=== PATIENT | male | born 1935 | race Caucasian/White ===

== ENCOUNTER 2017-06-07 14:46 | Inpatient (IN) ==
[2017-06-07] MEDS: *HR* Warfarin 3 MG TABLET PO SCH (21:44)
[2017-06-08] MEDS: Cholecalciferol (D-3) 1,000 UNIT TABLET PO SCH (09:01)
[2017-06-08] MEDS: Folic Acid 1 MG TABLET PO SCH (09:01)
[2017-06-08] MEDS: Metoprolol XL (24 HR) Succ 50 MG TAB.ER.24H PO SCH (09:01)
[2017-06-08] MEDS: *HR* Amiodarone 200 MG TABLET PO SCH (09:01)
[2017-06-08] MEDS: Furosemide 40 MG TABLET PO SCH (09:01)
[2017-06-08] MEDS: TESTOSTERONE APPL TP SCH (13:40)
--- NOTE | 2017-06-08 15:43 | Internal Med History&Physical ---
Date of Encounter: 06/08/17 Time of Encounter: 15:15 Assessment and Plan (1) CHF (congestive heart failure) Current visit: No Status: Chronic We will recheck BNP peptide in a.m. Qualifiers: Congestive heart failure type: combined Congestive heart failure chronicity : chronic Qualified Code(s): I50.42 - Chronic combined systolic (congestive) and diastolic (congestive) heart failure (2) Anemia Current visit: No Status: Chronic Suspect due at least in part to chronic kidney disease. We will order anemia testing in a.m. Qualifiers: Anemia type: unspecified type Qualified Code(s): D64.9 - Anemia, unspecified (3) Chronic kidney disease Current visit: No Status: Chronic Monitor renal indices periodically. Qualifiers: Chronic kidney disease stage: stage 4 (severe) Qualified Code(s): N18.4 - Chronic kidney disease, stage 4 (severe) Internal Medicine - H&P: HPI Chief complaint: Heart failure Admitted From: Hospital to Hospital Transfer Plans for Post Hospital Care: Home History of present illness: Mr. Thompson is a 81 year old male who was hospitalized at [facility] June 01 after presenting with dyspnea felt to be due to exaceration of heart failure. Medications were adjusted and he improved. It was felt he would benefit from swing bed stay for rehabilitation therapy prior to returning home. Cardiovascular history is significant for hypertension. He has paroxysmal atrial fibrillation and is on amiodarone. He had ICD pacemaker placed several years ago for ventricular tachycardia. He reports a cardiac ablation procedure was done. He had an echocardiogram 04/29/2017 which showed LVEF of 40-45%. The interventricular septum and posterior wall thickness measurements were elevated at 1.43 and 1.42 cm respectively. The E/A ratio was 0.6. There was LAE at 4.60 cm. There was reported NOBLE without measurements recorded. There was mild aortic regurgitation and [id number] mitral regurgitation. Denies history of DVT or pulmonary embolus. He is uncertain if he has had a heart catheter. Past Med Surg Social Fam HX - Past Medical History Medical history: atrial fibrillation, cancer, CHF, coronary artery disease, hyperlipidemia, hypertension, renal disease, other Psychiatric history: no psych history - Past Surgical History Surgical History: appendectomy, cataract, colectomy, prostatectomy, other, AICD , pacemaker - Social History Smoking Status: Former smoker Smokeless Tobacco Status: No Alcohol use: occasionally Drug use: none - Family History Mother Adopted: No Family Member Ethnicity: Non- Living Status: Hx Family Cardiac Disorders: Yes Hx Family GI Disorders: Yes (CRC resectable) Brother Hx Family Cancer: Yes (esophageal cancer, other brother had liver cancer) Father Adopted: No Family Member Ethnicity: Non- Living Status: Hx Family Cardiac Disorders: Yes Internal Medicine - H&P: Meds Amiodarone [Cordarone] 200 mg PO QAM 01/16/15 [History] Metoprolol XL (24 HR) Succ [Toprol Xl] 50 mg PO QAM 01/16/15 [History] Mexiletine [Mexitil] 200 mg PO Q8H 01/16/15 [History] Pravastatin Sodium 10 mg PO QPM 01/16/15 [History] Cholecalciferol (D-3) [Vitamin D] 2,000 unit PO DAILY 06/14/16 [History] Denosumab [Prolia (For Outpatient Infusion)] 60 mg SQ [id number] 04/27/17 [History ] Testosterone [Androgel] 2 appl TD DAILY 04/27/17 [History] Warfarin [Coumadin] 1.5 mg PO TUSA 04/27/17 [History] Warfarin [Coumadin] 3 mg PO SUMOWETHFR 04/27/17 [History] Folic Acid 1 mg PO DAILY #30 tablet 05/23/17 [Rx] Furosemide [Lasix] 40 mg PO DAILY 05/31/17 [History] 3 Allergy/AdvReac Type Severity Reaction Status Date / Time No Known Allergies Allergy Verified 05/19/17 13:18 All Systems PM: A 10-system review of systems was performed and is negative for pertinent findings except as documented above in the HPI. Review of systems: General: He states his weight has varied significantly in the past year based on fluid retention Cardiovascular: As per history of present illness Respiratory: He smoked a total of approximately 40 years but quit at least 25 years ago. He denies chronic lung disease GI: He denies disorders of his liver gallbladder or exocrine pancreas : He has chronic kidney disease stage III and BPH. He denies of the kidney bladder prostate disorders Neurologic: He denies large distribution strokes or seizures. Injuries: He has hyperlipidemia. He has no known diabetes or thyroid disease Hematology/oncology: He has anemia. He has had basal cell skin cancer but denies internal malignancies Psychiatric: He denies anxiety depression or other mental health issues Muscle skeletal: He denies arthritis or gout or other bone joint or muscle disorders. - Constitutional Vitals: Temp Pulse Resp BP Pulse Ox 98.2 F 53 18 141/77 95 06/08/17 06:10 06/08/17 06:10 06/08/17 06:10 06/08/17 06:10 06/08/17 06:10 Exam: Gen.: He is a well-developed well-nourished male resting comfortably in chair who denies pain or dyspnea HEENT: Head is atraumatic and normocephalic. Eyes: EOMI. There is no scleral icterus. Mouth: Mucosa is moist. Neck: Supple and nontender. There is no thyromegaly or adenopathy noted. Heart: Regular without murmurs gallops or ectopics Lungs: No wheezes or crackles are heard. Abdomen: Soft and nontender. No masses or guarding are noted. Extremities: There is no cyanosis or clubbing noted. He has 1+ edema bilaterally of the dorsum of the feet and lower anterior shins. Dorsalis pedis and posterior tibial pulses are not palpable. He has dependent rubor. Neurologic: Mental status: He is talkative and a good historian. Cranial nerves : Smile is symmetric. Forehead wrinkles bilaterally. Tongue protrudes midline. EOMI. He is hard of hearing. Motor: There is no pronator drift. Cerebellar: Finger to nose is intact bilaterally. Skin: Warm and dry
[2017-06-08] MEDS: *HR* Warfarin 3 MG TABLET PO SCH (18:09)
[2017-06-09 06:12] LABS: Basophils % 0.7 %; Eosinophils # 0.1 K/mcL (0.0-0.6); Eosinophils % 2.2 %; Hematocrit 33.1 % (37.5-50.1); Hemoglobin 10.7 g/dL (12.9-16.9); Immature Granulocytes % 0.6 % (0-4); Lymphocytes # 0.6 K/mcL (0.6-4.6); Lymphocytes % 11.4 %; Mean Corpuscular HGB Conc 32.3 g/dL (31.6-35.5); Mean Corpuscular Hemoglobin 28.9 pg (28.0-33.3); Mean Corpuscular Volume 89.5 fL (83.0-100.0); Mean Platelet Volume 11.9 fL (9.4-12.4); Monocytes # 0.6 K/mcL (0.0-1.3); Monocytes % 10.3 %; Neutrophils # 4.1 K/mcL (1.6-8.9); Platelet Count 113 K/mcL (140-400); Red Cell Distribution Width 15.5 % (11.5-14.5); Segmented Neutrophils % 74.8 %
[2017-06-09] MEDS: Folic Acid 1 MG TABLET PO SCH (08:41)
[2017-06-09] MEDS: Cholecalciferol (D-3) 1,000 UNIT TABLET PO SCH (08:41)
[2017-06-09] MEDS: Metoprolol XL (24 HR) Succ 50 MG TAB.ER.24H PO SCH (08:41)
[2017-06-09] MEDS: *HR* Amiodarone 200 MG TABLET PO SCH (08:41)
[2017-06-09] MEDS: Furosemide 40 MG TABLET PO SCH (08:41)
[2017-06-09 10:06] LABS: % Iron Saturation 12 % (20-55); Ferritin 164 ng/ml (20-250); Iron 34 mcg/dL (65-175); Transferrin 201 mg/dL (203-362)
[2017-06-09] MEDS: TESTOSTERONE APPL TP SCH (14:35)
[2017-06-09] MEDS: *HR* Warfarin 3 MG TABLET PO SCH (17:39)
[2017-06-10] MEDS: Cholecalciferol (D-3) 1,000 UNIT TABLET PO SCH (08:58)
[2017-06-10] MEDS: Furosemide 40 MG TABLET PO SCH (08:58)
[2017-06-10] MEDS: Folic Acid 1 MG TABLET PO SCH (08:58)
[2017-06-10] MEDS: Metoprolol XL (24 HR) Succ 50 MG TAB.ER.24H PO SCH (08:58)
[2017-06-10] MEDS: *HR* Amiodarone 200 MG TABLET PO SCH (08:58)
--- NOTE | 2017-06-10 11:06 | Internal Med Progress Note ---
Date of Encounter: 06/10/17 Time of Encounter: 10:55 - Assessment and plan (1) CHF (congestive heart failure) Current Visit: No Status: Chronic Assessment and plan: June 10. BN peptide was improved to 2373. Continue Lasix and Toprol. Qualifiers: Congestive heart failure type: combined Congestive heart failure chronicity : chronic Qualified Code(s): I50.42 - Chronic combined systolic (congestive) and diastolic (congestive) heart failure (2) Anemia Current Visit: No Status: Chronic Assessment and plan: June 10. Anemia testing showed iron 34, transferrin saturation 12%, transferrin 201, ferritin 164, B12 493, and folate 31. I will discontinue folate and start ferrous sulfate with vitamin C. Qualifiers: Anemia type: unspecified type Qualified Code(s): D64.9 - Anemia, unspecified (3) Chronic kidney disease Current Visit: No Status: Chronic Assessment and plan: June 10. We will recheck labs June 12. Qualifiers: Chronic kidney disease stage: stage 4 (severe) Qualified Code(s): N18.4 - Chronic kidney disease, stage 4 (severe) - Subjective Interval history: June 10. He has no new complaints and feels better overall - Constitutional Vitals: Temp Pulse Resp BP Pulse Ox 97.5 F L 54 18 124/71 92 06/10/17 06:35 06/10/17 06:35 06/10/17 06:35 06/10/17 06:35 06/10/17 06:35 Exam: He is using an exercise machine in the rehabilitation gym. He does not appear dyspneic and is able to carry on a conversation. His affect is cheerful. I reviewed his medications and lab results. Internal Medicine: Result - Labs CBC & Chem 7: 06/09/17 05:42 Consult Discharge Plan - Plan Referrals: Soumya Harris CNP [Primary Care Provider] - 1 week
[2017-06-10] MEDS: TESTOSTERONE APPL TP SCH (11:54)
[2017-06-10] MEDS ORDERED: Bumetanide 1 MG TABLET PO ONE (18:16)
[2017-06-10] MEDS: *HR* Warfarin 3 MG TABLET PO SCH (18:46)
[2017-06-11] MEDS: *HR* Amiodarone 200 MG TABLET PO SCH (09:16)
[2017-06-11] MEDS: Metoprolol XL (24 HR) Succ 50 MG TAB.ER.24H PO SCH (09:17)
[2017-06-11] MEDS: TESTOSTERONE APPL TP SCH (09:17)
[2017-06-11] MEDS: Furosemide 40 MG TABLET PO SCH (09:17)
[2017-06-11] MEDS: Cholecalciferol (D-3) 1,000 UNIT TABLET PO SCH (09:17)
[2017-06-11] MEDS: *HR* Warfarin 3 MG TABLET PO SCH (17:37)
[2017-06-12 04:03] LABS: Basophils % 0.7 %; Eosinophils # 0.1 K/mcL (0.0-0.6); Eosinophils % 1.7 %; Hematocrit 33.8 % (37.5-50.1); Immature Granulocytes % 0.9 % (0-4); Lymphocytes # 0.6 K/mcL (0.6-4.6); Lymphocytes % 9.9 %; Mean Corpuscular HGB Conc 32.5 g/dL (31.6-35.5); Mean Corpuscular Hemoglobin 28.8 pg (28.0-33.3); Mean Corpuscular Volume 88.5 fL (83.0-100.0); Mean Platelet Volume 12.2 fL (9.4-12.4); Monocytes # 0.5 K/mcL (0.0-1.3); Monocytes % 8.5 %; Neutrophils # 4.6 K/mcL (1.6-8.9); Platelet Count 130 K/mcL (140-400); Red Blood Count 3.82 M/mcL (4.19-5.50); Segmented Neutrophils % 78.3 %
[2017-06-12 04:08] LABS: INR 2.7; Prothrombin Time 30.2 Seconds (9.4-12.1)
[2017-06-12 04:21] LABS: Calcium 8.6 mg/dL (8.6-10.3); Magnesium 2.1 mg/dL (1.6-2.6); Potassium 4.1 mEq/L (3.5-5.1)
[2017-06-12] MEDS: Furosemide 40 MG TABLET PO SCH (09:32)
[2017-06-12] MEDS: Cholecalciferol (D-3) 1,000 UNIT TABLET PO SCH (09:32)
[2017-06-12] MEDS: Metoprolol XL (24 HR) Succ 50 MG TAB.ER.24H PO SCH (09:32)
[2017-06-12] MEDS: *HR* Amiodarone 200 MG TABLET PO SCH (09:32)
[2017-06-12] MEDS: TESTOSTERONE APPL TP SCH (09:33)
--- NOTE | 2017-06-12 15:12 | Internal Med Progress Note ---
Date of Encounter: 06/12/17 Time of Encounter: 15:05 - Assessment and plan (1) CHF (congestive heart failure) Current Visit: No Status: Chronic Assessment and plan: June 10. BN peptide was improved to 2373. Continue Lasix and Toprol. June 12. BN peptide has increased to 2848. I will change from Lasix to Bumex and add low-dose isosorbide with Lanoxin. Qualifiers: Congestive heart failure type: combined Congestive heart failure chronicity : chronic Qualified Code(s): I50.42 - Chronic combined systolic (congestive) and diastolic (congestive) heart failure (2) Anemia Current Visit: No Status: Chronic Assessment and plan: June 10. Anemia testing showed iron 34, transferrin saturation 12%, transferrin 201, ferritin 164, B12 493, and folate 31. I will discontinue folate and start ferrous sulfate with vitamin C. Qualifiers: Anemia type: unspecified type Qualified Code(s): D64.9 - Anemia, unspecified (3) Chronic kidney disease Current Visit: No Status: Chronic Assessment and plan: June 10. We will recheck labs June 12. June 12. Creatinine minimally changed to 2.26. Qualifiers: Chronic kidney disease stage: stage 4 (severe) Qualified Code(s): N18.4 - Chronic kidney disease, stage 4 (severe) - Subjective Interval history: June 10. He has no new complaints and feels better overall June 12. He has no new complaints. He feels his stamina is overall increased since admission. - Constitutional Vitals: Temp Pulse Resp BP Pulse Ox 97.3 F L 54 14 125/68 93 06/12/17 06:45 06/12/17 06:45 06/12/17 06:45 06/12/17 06:45 06/12/17 06:45 Exam: He is resting comfortably in a chair at bedside. Legs show trace to 1+ edema bilaterally. Lungs are clear. Heart is regular (pacer). I reviewed his medications and lab results. Internal Medicine: Result - Labs CBC & Chem 7: 06/12/17 03:44 06/12/17 03:44 Labs: Short CBC 06/12/17 Range/Units 03:44 WBC 5.9 (4.3-11.1) K/mcL Hgb 11.0 L (12.9-16.9) g/dL Hct 33.8 L (37.5-50.1) % Plt Count 130 L (140-400) K/mcL Neutrophils # 4.6 (1.6-8.9) K/mcL BMP 06/12/17 03:44 Sodium 139 Potassium 4.1 Chloride 106 Carbon Dioxide 25 BUN 54 H Creatinine 2.26 H Glucose 94 Calcium 8.6 - ABG Interpretation ABG results: PT/INR, D-dimer PT 30.2 Seconds (9.4-12.1) H 06/12/17 03:44 Consult Discharge Plan - Plan Referrals: [facility],Soumya Duff, GEOPHYSICAL PROSPECTING SURVEYOR [Primary Care Provider] - 1 week
[2017-06-12] MEDS ORDERED: *HR* Digoxin 0.125 MG TABLET PO SCH (15:15)
[2017-06-12] MEDS: Isosorbide MONOnitrate (24 HR) 30 MG TAB.ER.24H PO SCH (16:06)
[2017-06-12] MEDS: *HR* Warfarin 3 MG TABLET PO SCH (17:50)
[2017-06-13] MEDS ORDERED: Ascorbic Acid 500 MG TABLET PO SCH (06:30)
[2017-06-13 06:32] VITALS: BP 129/75
[2017-06-13] MEDS: Isosorbide MONOnitrate (24 HR) 30 MG TAB.ER.24H PO SCH (08:04)
[2017-06-13] MEDS: Cholecalciferol (D-3) 1,000 UNIT TABLET PO SCH (08:04)
[2017-06-13] MEDS: *HR* Amiodarone 200 MG TABLET PO SCH (08:04)
[2017-06-13] MEDS: Metoprolol XL (24 HR) Succ 50 MG TAB.ER.24H PO SCH (08:04)
[2017-06-13] MEDS: TESTOSTERONE APPL TP SCH (08:06)
[2017-06-13] MEDS ORDERED: Bumetanide 1 MG TABLET PO SCH (09:00)
--- NOTE | 2017-06-13 11:45 | Discharge Summary ---
Date of Encounter: 06/13/17 Time of Encounter: 11:35 - Discharge Diagnosis (1) CHF (congestive heart failure) Priority: Primary Status: Chronic Qualifiers: Congestive heart failure type: combined Congestive heart failure chronicity : chronic Qualified Code(s): I50.42 - Chronic combined systolic (congestive) and diastolic (congestive) heart failure (2) Anemia Priority: Secondary Status: Chronic Qualifiers: Anemia type: unspecified type Qualified Code(s): D64.9 - Anemia, unspecified (3) Chronic kidney disease Priority: Secondary Status: Chronic Qualifiers: Chronic kidney disease stage: stage 4 (severe) Qualified Code(s): N18.4 - Chronic kidney disease, stage 4 (severe) - Discharge Medications Prescriptions: Ascorbic Acid [Vitamin C] 500 mg PO 0630 #30 tablet Bumetanide [Bumex] 1 mg PO DAILY #30 tablet Digoxin [Lanoxin] 0.125 mg PO QOD #7 tablet Ferrous Sulfate 325 mg PO 0630 #30 tablet Isosorbide MONOnitrate (24 HR) [Imdur] 30 mg PO DAILY #30 tab.er.24h Home Medications: Amiodarone [Cordarone] 200 mg PO QAM 01/16/15 [History] Metoprolol XL (24 HR) Succ [Toprol Xl] 50 mg PO QAM 01/16/15 [History] Mexiletine [Mexitil] 200 mg PO Q8H 01/16/15 [History] Pravastatin Sodium 10 mg PO QPM 01/16/15 [History] Cholecalciferol (D-3) [Vitamin D] 2,000 unit PO DAILY 06/14/16 [History] Denosumab [Prolia (For Outpatient Infusion)] 60 mg SQ [id number] 04/27/17 [History ] Testosterone [Androgel] 2 appl TD DAILY 04/27/17 [History] Warfarin [Coumadin] 1.5 mg PO TUSA 04/27/17 [History] Warfarin [Coumadin] 3 mg PO SUMOWETHFR 04/27/17 [History] Ascorbic Acid [Vitamin C] 500 mg PO 0630 #30 tablet 06/13/17 [Rx] Bumetanide [Bumex] 1 mg PO DAILY #30 tablet 06/13/17 [Rx] Digoxin [Lanoxin] 0.125 mg PO QOD #7 tablet 06/13/17 [Rx] Ferrous Sulfate 325 mg PO 0630 #30 tablet 06/13/17 [Rx] Isosorbide MONOnitrate (24 HR) [Imdur] 30 mg PO DAILY #30 tab.er.24h 06/13/17 [ Rx] Allergies/Adverse Reactions: 3 Allergy/AdvReac Type Severity Reaction Status Date / Time No Known Allergies Allergy Verified 05/19/17 13:18 Date of admission: 06/07/17 17:24 Primary care physician: Soumya Harris CNP Consults: 06/07/17 17:49 Consult to Occupational Therapy [CONS] Routine Comment: Evaluate, develop, and implement plan of care Reason for Consult: Evaluate, develop, and implement plan of care Consult to Physical Therapy [CONS] Routine Comment: Evaluate, develop, and implement plan of care Reason for Consult: Evaluate, develop, and implement plan of care Consult to Demand Planner [CONS] Routine Reason for SW Consult: has HH - Patient Status Disposition: Home, Self-Care Functional capacity at discharge: uses cane/walker Overall status at discharge: patient is progressing back to baseline - Discharge Instructions Follow Up With: Soumya Harris CNP [Primary Care Provider] - 1 week - Diet and Activity Activity: resume usual activities as tolerated Diet: advance to your usual diet Hospital course: Mr. Thompson is a 81 year old male who was hospitalized at [facility] [place] June 01- after presenting with dyspnea felt to be due to exaceration of heart failure. Medications were adjusted and he improved. It was felt he would benefit from swing bed stay for rehabilitation therapy prior to returning home. Initial orders were written by the discharging physicians at [facility] [place]. I saw him on June 08 and performed the swing bed history and physical. He was changed from Lasix to Bumex. Lanoxin and isosorbide were added. He had clinical improvement with less dyspnea by the day of discharge. He had satisfactory progress in physical therapy and occupational therapy. He will continue his present medication regimen at home. He will follow with his PCP within one week. He will need prescriptions for refills on Lanoxin within 2 weeks. His PCP can monitor dig level etc. Anemia testing showed iron 34, transferrin saturation 12, transferrin 201, ferritin 164, B12 493, and folate 31. He was started on oral ferrous sulfate with vitamin C. Folic acid will be discontinued since the level was elevated. On June 13 he felt stable for discharge home. He will follow with his PCP within one week. - Time Spent with Patient Total time spent providing and/or coordinating discharge services: - Constitutional Vitals: Temp Pulse Resp BP Pulse Ox 97.6 F 56 18 129/75 93 06/13/17 06:31 06/13/17 06:31 06/13/17 06:31 06/13/17 06:31 06/13/17 06:31
--- NOTE | 2017-06-13 15:22 | Physician Discharge Referral ---
Home Health/Hosp Referral Info Transfer to: Home Health Attending Provider: Mario Provider in Charge Post Discharge: PCP (Soumya Harris CNP) - Diagnosis (1) CHF (congestive heart failure) Priority: Primary Status: Chronic (2) Anemia Priority: Secondary Status: Chronic (3) Chronic kidney disease Priority: Secondary Status: Chronic - Respiratory Orders Smoking Cessation: Smoking cessation has been advised. For more information, call the [place] Tobacco Quit Line at 0-170-NJET-NOW. - Diet/Nutrition Diet/Nutrition Orders: No Added Salt (JOSE) - Activity Activity Orders: Walker - Services Needed Following services are medically necessary services: Nursing, Home Health Aide, Physical Therapy - Transfer Medications Prescriptions: Ascorbic Acid [Vitamin C] 500 mg PO 0630 #30 tablet Bumetanide [Bumex] 1 mg PO DAILY #30 tablet Digoxin [Lanoxin] 0.125 mg PO QOD #7 tablet Ferrous Sulfate 325 mg PO 0630 #30 tablet Isosorbide MONOnitrate (24 HR) [Imdur] 30 mg PO DAILY #30 tab.er.24h Home Medications: Amiodarone [Cordarone] 200 mg PO QAM 01/16/15 [History] Metoprolol XL (24 HR) Succ [Toprol Xl] 50 mg PO QAM 01/16/15 [History] Mexiletine [Mexitil] 200 mg PO Q8H 01/16/15 [History] Pravastatin Sodium 10 mg PO QPM 01/16/15 [History] Cholecalciferol (D-3) [Vitamin D] 2,000 unit PO DAILY 06/14/16 [History] Denosumab [Prolia (For Outpatient Infusion)] 60 mg SQ [id number] 04/27/17 [History ] Testosterone [Androgel] 2 appl TD DAILY 04/27/17 [History] Warfarin [Coumadin] 1.5 mg PO TUSA 04/27/17 [History] Warfarin [Coumadin] 3 mg PO SUMOWETHFR 04/27/17 [History] Ascorbic Acid [Vitamin C] 500 mg PO 0630 #30 tablet 06/13/17 [Rx] Bumetanide [Bumex] 1 mg PO DAILY #30 tablet 06/13/17 [Rx] Digoxin [Lanoxin] 0.125 mg PO QOD #7 tablet 06/13/17 [Rx] Ferrous Sulfate 325 mg PO 0630 #30 tablet 06/13/17 [Rx] Isosorbide MONOnitrate (24 HR) [Imdur] 30 mg PO DAILY #30 tab.er.24h 06/13/17 [ Rx] Allergies/Adverse Reactions: 3 Allergy/AdvReac Type Severity Reaction Status Date / Time No Known Allergies Allergy Verified 05/19/17 13:18 Certification: Further, I certify that my clinical findings support that this patient is homebound (i.e. absences from home require considerable and taxing effort and are for medical reasons or sikh services or infrequently or short duration when for other reasons) because: Homebound Reason: Leaving home requires considerable and taxing effort due to condition (Dyspnea on exertion secondary to heart failure, chronic kidney disease stage IV) Attestation: My signature below is to certify that this patient is under my care and that I, or nurse practitioner, or a physician's orthodontic technician assistant working with me, has a face-to -face encounter with this patient.
== END 2017-06-13 15:48 | disposition home or self-care (01) | DRG 945 ==
LOC: INPPIK 17:24
PROVIDERS: ADMIT Internal Medicine; ATTEND Internal Medicine